=== PATIENT | female | born 1965 | race Caucasian/White ===

== ENCOUNTER 2018-10-29 16:38 | Emergency (ER) | payer OTHER ==
[2018-10-29] MEDS ORDERED: DIPHENHYDRAMINE HCL 50 MG/ML VIAL IM ONE (16:52)
--- NOTE | 2018-10-29 16:53 | ER Document Report ---
ED Medical Screen (RME) - General Chief Complaint: Nausea/Vomiting Stated Complaint: COLD SYMPTOMS Time Seen by Provider: 10/29/18 16:49 Notes: 53-year-old female patient has had URI symptoms for the last few days. Today she tried her son's Hydromet cough syrup and shortly thereafter began uncontrolled vomiting. This is been going on now for almost 4 hours. She did come in by EMS who gave her Zofran 4 mg sublingual without relief. They were unable to get IV access. Spouse is unsure if she is ever had hydrocodone before. He states she does not do well with general anesthesia. At this time the patient is holding the emesis bag and frequently retching dry heaving and spitting into the bag. I have greeted and performed a rapid initial assessment of this patient. A comprehensive ED assessment and evaluation of the patient, analysis of test results and completion of the medical decision making process will be conducted by additional ED providers. TRAVEL OUTSIDE OF THE [place] IN LAST 30 DAYS: No - Related Data Allergies/Adverse Reactions: No Known Allergies Allergy (Unverified 10/29/18 16:40) Physical Exam - Vital signs Vitals: Pulse Resp BP Pulse Ox 89 20 149/94 H 94 10/29/18 16:42 10/29/18 16:42 10/29/18 16:42 10/29/18 16:42 Course - Vital Signs Vital signs: Temp Pulse Resp BP Pulse Ox 89 20 149/94 H 94 10/29/18 16:42 10/29/18 16:42 10/29/18 16:42 10/29/18 16:42 Doctor's Discharge - Discharge Referrals: TANNER ELLIOTT FNP [Primary Care Provider] - Follow up as needed
[2018-10-29] MEDS ORDERED: IPRATROPIUM/ALBUTEROL 0.5-2.5 MG/3 ML AMPUL NEB ONE ×2 (17:47→19:05)
[2018-10-29] MEDS ORDERED: ONDANSETRON HCL INJ/PF 4 MG/2 ML SDV IV ONE (17:48)
[2018-10-29] MEDS ORDERED: RINGERS SOLUTION,LACTATED 1,000 ML IV ONE (17:48)
--- NOTE | 2018-10-29 17:51 | ER Document Report ---
ED General - General Chief Complaint: Nausea/Vomiting Stated Complaint: COLD SYMPTOMS Time Seen by Provider: 10/29/18 16:49 Notes: Patient is a 53-year-old female who presents to the emergency department with a chief complaint of nausea, vomiting, and dizziness. Her symptoms started 3 hours prior to arrival. She took her son's cough medicine for a cough she had. Shortly after she consumed the medication, she began vomiting for the next 3 hours. She has had her cough for the past 3 days and her son was seen by his primary care doctor with the same symptoms, so she decided to try and take his medication to help her cough. She was brought in by ambulance and given 4 mg of Zofran ODT, but she vomited that medication up. she denies any fever, shortness of breath, hives, or any other symptoms at this time. TRAVEL OUTSIDE OF THE [place] IN LAST 30 DAYS: No - Related Data Allergies/Adverse Reactions: hydrocodone Adverse Reaction (Verified 10/29/18 16:57) Past Medical History - Social History Smoking Status: Never Smoker Chew tobacco use (# tins/day): No Frequency of alcohol use: None Drug Abuse: None Family History: Reviewed & Not Pertinent Patient has suicidal ideation: No Patient has homicidal ideation: No Renal/ Medical History: Denies: Hx Peritoneal Dialysis Past Surgical History: Reports: Hx Hysterectomy Review of Systems - Review of Systems Notes: REVIEW OF SYSTEMS: CONSTITUTIONAL : Denies recent illness. Denies recent unintentional weight loss. Denies fever, chills, or sweats. EENT: Denies eye, ear, throat, or mouth pain, discharge, or symptoms. Denies nasal or sinus congestion. CARDIOVASCULAR: Denies chest pain. RESPIRATORY: See HPI GASTROINTESTINAL: See HPI GENITOURINARY: Denies difficulty urinating, burning, blood in urine, urgency or frequency. MUSCULOSKELETAL: Denies neck and back pain. Denies joint pain or swelling. SKIN: Denies rash, lesions. HEMATOLOGIC : Denies easy bruising or bleeding. LYMPHATIC: Denies swollen, painful, enlarged glands. NEUROLOGICAL: See HPI PSYCHIATRIC: Denies stress, anxiety, alteration in sleep patterns, or depression. All other systems reviewed and negative. Physical Exam - Vital signs Vitals: Pulse Resp BP Pulse Ox 89 20 149/94 H 94 10/29/18 16:42 10/29/18 16:42 10/29/18 16:42 10/29/18 16:42 - Notes Notes: PHYSICAL EXAMINATION: GENERAL: Appears well, healthy, well-nourished, no acute distress. HEAD: Normocephalic, atraumatic. EYES: PERRL, conjunctiva normal, all extraocular movements intact, sclera non icteric ENT: Moist mucous membranes. NECK: Supple, no noticeable swelling, redness, rash. Normal range of motion. LUNGS: Wheezes noted to bilateral lung hung throughout via auscultation. CARDIOVASCULAR: S1-S2, regular rate, regular rhythm. Radial pulses 2+, normal. ABDOMEN: Normoactive bowel sounds. Soft, nontender, no guarding, no rebound tenderness, and no masses palpated. EXTREMITIES: Normal strength and range of motion, no pitting or edema. No cyanosis. NEUROLOGICAL: Moves all extremities upon command. Strength 5/5 in all extremities. PSYCH: Normal mood, normal affect. SKIN: Warm, dry. No rash, lesions, ulcerations noted. Normal skin turgor. Course - Re-evaluation Re-evalutation: 10/29/181899 Patient does have audible wheezes throughout all lung hung. She will be given a DuoNeb treatment for her wheezing. She also appears dehydrated and due to her history of vomiting for the past 3 hours, I will give her IV fluids. I suspect her dizziness is from vomiting for the past 3 hours, again this will be treated with IV fluids. 10/29/181944 Patient's lung sounds are still wheezy. She will be given another DuoNeb treatment to help with her symptoms. I have advised her that she needs to sit straight up when she receives this breathing treatment, because her first breathing treatment she was laying down in the lateral position and not taking deep breaths. 10/29/18 20:16 Patient is doing remarkably better. Her lung sounds are clear. She will be given an albuterol inhaler as needed for her wheezing or shortness of breath. I have also provided Zofran for her if she develops nausea again. I have advised her that she may take Benadryl as needed for an allergic reaction. I also have informed her that she should not take other peoples medications. I have also advised her to stay away from hydrocodone or medications that contain hydrocodone products. Verbal discharge instructions were given to the patient and her . They verbalized understanding. She is stable for discharge. - Vital Signs Vital signs: Temp Pulse Resp BP Pulse Ox 97.3 F 67 20 134/76 H 95 10/29/18 20:41 10/29/18 20:41 10/29/18 16:42 10/29/18 20:41 10/29/18 20:41 Discharge - Discharge Clinical Impression: Allergic reaction caused by a drug Qualifiers: Encounter type: initial encounter Qualified Code(s): T78.40XA - Allergy, unspecified, initial encounter Condition: Stable Disposition: HOME, SELF-CARE Additional Instructions: You were seen in the emergency department today for an allergic reaction. Do not take any medications containing hydrocodone, or any other medications that are similar. If you develop another allergic reaction, you can take Benadryl. You were also seen for an upper respiratory tract infection. You have been prescribed Tessalon Perles. You may take this medication every 8 hours as needed for a cough. You have also been given Zofran, medication for nausea. You can take this medication every 6 hours as needed. You have also been given albuterol inhaler. You may take this every 4 hours as needed for wheezing or shortness of breath. Please follow-up with your primary care provider within the next 3-4 days. If you develop shortness of breath, or have any symptoms that are worrisome to you, please return to the emergency department. Prescriptions: Benzonatate [Tessalon Perles 100 mg Capsule] 100 mg PO Q8HP PRN #40 capsule PRN Reason: Referrals: TANNER ELLIOTT FNP [Primary Care Provider] - Follow up in 3-5 days
[2018-10-29] MEDS ORDERED: ALBUTEROL SULFATE HFA (90 MCG/PUFF) 200 PUFF/8.5 GM MDI IH ONE (20:14)
[2018-10-29] MEDS ORDERED: ONDANSETRON ODT 4 MG TAB (6 TAB/ER DISP) PO PRN (20:14)
[2018-10-29 21:06] VITALS: BP 134/76
== END 2018-10-29 21:16 | disposition home or self-care (01) ==
LOC: ER 16:38
DX: T78.40XA Allergy, unspecified, initial encounter (principal); R11.2 Nausea with vomiting, unspecified; X58.XXXA Exposure to other specified factors, initial encounter; Z90.710 Acquired absence of both cervix and uterus; Z88.6 Allergy status to analgesic agent
CPT/HCPCS: 94640 ×2; 99283; 96372; 96374; J1200; J2405; J7120; J3490; J7620